=== PATIENT | female | born 1950 | race Caucasian/White ===

== ENCOUNTER 2016-07-25 13:36 | Outpatient (CLI) | payer BC | END 2016-07-25 13:37 | disposition home or self-care (01) | DX: N30.00 Acute cystitis without hematuria (principal) ==

== ENCOUNTER 2016-10-17 11:45 | Outpatient (CLI) | payer BC ==
--- NOTE | 2016-10-18 13:36 | Mammography Report ---
DIGITAL BILATERAL SCREENING MAMMOGRAM: 10/17/2016 CLINICAL HISTORY: A 66-year-old female in for routine screening mammogram. Family history indicates no breast cancer. Patient has had no prior breast surgeries. COMPARISON: None. TECHNIQUE: Craniocaudad and oblique lateral views of each breast were obtained with Hologic full-fie ld digital mammography. FINDINGS: Breast are almost entirely composed of fat. No significant clusters of calcifications are seen. No significant masses are noted. IMPRESSION: BREASTS APPEAR RADIOGRAPHICALLY BENIGN. BI-RADS 1. Negative. RECOMMENDATION: Annual bilateral screening mammography. STANDARD QUALIFYING STATEMENTS 1. This examination was reviewed with the aid of Computer-Aided Detection (CAD). 2. A negative or benign imaging report should not delay biopsy if clinically suspicious findings are present. Consider surgical consultation if warranted. More than 5% of cancers are not identified by i maging. 3. Dense breasts may obscure an underlying neoplasm. JOB #: [id number] EXT JOB #:[id number]
== END 2016-10-17 11:46 | disposition home or self-care (01) ==
LOC: DI.S 11:45
PROVIDERS: ATTEND Registered Nurse
DX: Z12.31 Encounter for screening mammogram for malignant neoplasm of breast (principal)
CPT/HCPCS: 77067

== ENCOUNTER 2016-12-09 09:07 | Outpatient (CLI) | payer BC ==
--- NOTE | 2016-12-10 21:36 | Ultrasound Report ---
EXAM: ABDOMEN ULTRASOUND LIMITED, RUQ EXAM DATE: 12/09/2016 09:56 AM. CLINICAL HISTORY: HEPATITIS C; CHRONIC. COMPARISON: None. TECHNIQUE: Real-time scanning was performed with static images obtained. FINDINGS: Liver: Normal in size and echotexture. No suspicious mass seen. Incidental right liver 13 mm cyst. Ma in portal vein flow: Hepatopetal. Gallbladder: Normal. No stones, wall thickening, or sonographic Can's sign. Biliary System: CBD measures 6 mm. No intrahepatic or extrahepatic ductal dilatation. Other: None. IMPRESSION: No suspicious hepatic mass seen by ultrasound. [facility] Referring Provider Line: [phone] SITE ID: [id number]
== END 2016-12-09 09:08 | disposition home or self-care (01) ==
LOC: DI 09:07
PROVIDERS: ATTEND Internal Medicine
DX: B18.2 Chronic viral hepatitis C (principal)
CPT/HCPCS: 76705

== ENCOUNTER 2016-12-11 08:00 | Outpatient (CLI) | payer BC ==
[2016-12-11 18:52] LABS: IRON 151 ug/dL (28-170); TOTAL IRON BINDING CAPACITY 469 ug/dL (250-450); TRANSFERRIN 335 mg/dL (192-382)
[2016-12-11 19:05] LABS: FERRITIN 60.4 ng/mL (11.0-306.8)
[2016-12-11 19:21] LABS: THYROID STIMULATING HORMONE 1.01 uIU/mL (0.34-5.60)
[2016-12-12 13:01] LABS: HEPATITIS A AB TOTAL(IMMUNITY) REACTIVE (NON-REACTIVE)
[2016-12-13 12:56] LABS: ANA SCREEN NEGATIVE (NEGATIVE)
== END 2016-12-11 08:01 | disposition home or self-care (01) ==
LOC: LAB.S 08:00
PROVIDERS: ATTEND Internal Medicine
DX: B18.2 Chronic viral hepatitis C (principal)
CPT/HCPCS: 36415; 82728; 83540; 84443; 84466; 86038; 86317; 86704; 86708; 87340; 87522; 87902

== ENCOUNTER 2017-05-24 13:11 | Outpatient (CLI) | payer MEDICARE, BC ==
--- NOTE | 2017-05-24 19:52 | XRAY Report ---
COMPLETE CERVICAL SPINE: 05/24/2017 CLINICAL INDICATION: Pain. FINDINGS: AP, lateral, bilateral oblique, odontoid views of the cervical spine were obtained. There has been previous cerclage wire fixation of the posterior elements of C3 and C4, with additional osseous fusion of the C4-C5 disk space and C4-C5 posterior elements. Reversal of the normal cervical lordosis is present. Extensive degenerative changes are present, with bilateral osseous neural foraminal narrowing. There is no evidence of acute fracture. The prevertebral soft tissues are unremarkable. IMPRESSION: EXTENSIVE DEGENERATIVE AND POSTSURGICAL CHANGES. BILATERAL OSSEOUS NEURAL FORAMINAL NARROWING. NO EVIDENCE OF ACUTE FRACTURE. TD: 05/24/2017 19:49
--- NOTE | 2017-05-24 19:52 | XRAY Report ---
THREE VIEW RIGHT SHOULDER: 05/24/2017 CLINICAL INDICATION: Pain. FINDINGS: Internal and external rotational views and a scapular Y view of the right shoulder demonstrate no evidence of fracture or dislocation. The joint spaces are preserved. Surgical clips are noted in the right supraclavicular region. IMPRESSION: NORMAL RIGHT SHOULDER. TD: 05/24/2017 19:50
== END 2017-05-24 13:12 | disposition home or self-care (01) ==
LOC: DI.S 13:11
PROVIDERS: ATTEND Registered Nurse
DX: M47.892 Other spondylosis, cervical region (principal); M25.511 Pain in right shoulder; Z98.1 Arthrodesis status
CPT/HCPCS: 72050

== ENCOUNTER 2017-06-22 08:00 | Outpatient (CLI) | payer MEDICARE, BC ==
[2017-06-22 17:42] LABS: BASOPHILS # (AUTO) 0.1 10^3/uL (0.0-0.1); BASOPHILS % (AUTO) 1.2 %; EOSINOPHILS # (AUTO) 0.1 10^3/uL (0.0-0.7); EOSINOPHILS % (AUTO) 2.2 %; HGB - HEMOGLOBIN 14.1 g/dL (12.0-16.0); LYMPHOCYTES # (AUTO) 1.1 10^3/uL (1.5-3.5); LYMPHOCYTES % (AUTO) 17.1 %; MEAN CORPUSCULAR HEMOGLOBIN 31.5 pg (27.0-31.0); MEAN CORPUSCULAR HGB CONC 33.6 g/dL (32.0-36.0); MEAN CORPUSCULAR VOLUME 93.8 fL (81.0-99.0); MEAN PLATELET VOLUME 9.3 fL (7.9-10.8); MONOCYTES # (AUTO) 0.5 10^3/uL (0.0-1.0); MONOCYTES % (AUTO) 7.9 %; NEUTROPHILS # (AUTO) 4.8 10^3/uL (1.5-6.6); NEUTROPHILS % (AUTO) 71.6 %; PLT - PLATELET COUNT 149 10^3/uL (130-450); RED BLOOD COUNT 4.49 10^6/uL (4.20-5.40); RED CELL DISTRIBUTION WIDTH 12.5 % (12.0-15.0); WHITE BLOOD COUNT 6.7 x10^3/uL (4.8-10.8)
[2017-06-22 18:04] LABS: ALBUMIN 4.3 g/dL (3.2-5.5); ALBUMIN/GLOBULIN RATIO 1.4 (1.0-2.2); BILIRUBIN,TOTAL 0.7 mg/dL (0.2-1.0); CALCIUM 9.4 mg/dL (8.5-10.3); CREATININE 0.6 mg/dL (0.4-1.0); TOTAL PROTEIN 7.4 g/dL (6.7-8.2)
== END 2017-06-22 08:01 | disposition home or self-care (01) ==
LOC: LAB.F 08:00
PROVIDERS: ATTEND Internal Medicine
DX: B18.2 Chronic viral hepatitis C (principal)
CPT/HCPCS: 36415; 80053; 85025

== ENCOUNTER 2017-06-29 14:52 | Emergency (ER) | payer MEDICARE, BC ==
[2017-06-29] MEDS ORDERED: SODIUM CHLORIDE 0.9% 1,000 ML IV ONE (15:07)
--- NOTE | 2017-06-29 15:08 | ED Physician Documentation ---
History of Present Illness - Stated complaint Stated Complaint: DEHYDRATED/CHEST CONGESTION - History obtained from History obtained from: Patient - History of Present Illness Timing: Other (She got sick about a week ago with cough and cold and runny nose. It was getting better but then got abruptly worse last night with chills and some pleuritic left-sided chest pain with coughing and a cough productive of tannish sputum. She feels dizzy and dehydrated.) Review of Systems Constitutional: reports: Fever, Chills, Fatigue Nose: reports: Rhinorrhea / runny nose. denies: Congestion Throat: denies: Sore throat Respiratory: reports: Cough. denies: Dyspnea GI: denies: Abdominal Pain PD PAST MEDICAL HISTORY - Past Medical History Past Medical History: Yes GI: Hepatitis - Present Medications Home Medications: Ambulatory Orders Medication Instructions Recorded Confirmed Doxycycline Hyclate 100 mg PO BID #14 tablet 06/29/17 - Allergies Allergies/Adverse Reactions: Allergies Allergy/AdvReac Type Severity Reaction Status Date / Time No Known Drug Allergies Allergy Verified 06/29/17 15:09 - Social History Does the pt smoke?: No Does the pt drink ETOH?: No Does the pt have substance abuse?: No - Family History Family history: reports: Non contributory PD ED PE NORMAL - Vitals Vital signs reviewed: Yes - General General: Alert and oriented X 3, No acute distress - HEENT HEENT: PERRL, EOMI, Ears normal, Moist mucous membranes, Pharynx benign - Neck Neck: Supple, no meningeal sign, No bony TTP - Cardiac Cardiac: RRR, No murmur - Respiratory Respiratory: No respiratory distress, Clear bilaterally - Abdomen Abdomen: Normal bowel sounds, Soft, Non tender - Back Back: No CVA TTP, No spinal TTP - Derm Derm: Normal color, Warm and dry - Extremities Extremities: No edema, No calf tenderness / cord - Neuro Neuro: Alert and oriented X 3, Normal speech Results - Vitals Vitals: Vital Signs - 24 hr 06/29/17 15:00 Temperature 37.0 C Heart Rate 71 Respiratory 20 Rate Blood Pressure 101/50 L O2 Saturation 97 Oxygen O2 Source Room air - Labs Labs: Laboratory Tests 06/29/17 06/29/17 06/29/17 15:25 15:25 15:25 WBC 15.2 H RBC 4.22 Hgb 13.4 Hct 39.1 MCV 92.5 MCH 31.6 H MCHC 34.2 RDW 12.3 Plt Count 129 L MPV 7.9 Neut # 13.0 H Lymph # 1.2 L Dougherty # 0.9 Eos # 0.1 Baso # 0.0 Absolute Nucleated RBC 0.00 Nucleated RBC % 0.0 Sodium 133 L Potassium 3.3 L Chloride 101 Carbon Dioxide 24 Anion Gap 8.0 BUN 23 H Creatinine 0.8 Estimated GFR (MDRD) 72 L Glucose 94 Lactic Acid 0.9 Calcium 8.9 Total Bilirubin 0.7 AST 20 ALT 13 Alkaline Phosphatase 44 Total Protein 7.2 Albumin 3.8 Globulin 3.4 Albumin/Globulin Ratio 1.1 Lipase 12 L - Rads (name of study) 2v chest Radiology: EMP read contemporaneously (LLL MARLI) PD MEDICAL DECISION MAKING - ED course ED course: 67-year-old woman presents from clinic with symptoms suggestive of pneumonia which is proven on x-ray. Antibiotic choice was difficult based on her anti- hepatitis C treatment, for example Zithromax is contraindicated. Labs are reassuring. Departure - Departure Disposition: 01 Home, Self Care Clinical Impression: Pneumonia Qualifiers: Pneumonia type: due to unspecified organism Laterality: left Lung location: lower lobe of lung Qualified Code(s): J18.1 - Lobar pneumonia, unspecified organism Condition: Good Record reviewed to determine appropriate education?: Yes Instructions: Pneumonia Dc Prescriptions: Doxycycline Hyclate 100 mg PO BID #14 tablet Comments: Return if worsening or new symptoms develop. Follow-up with your doctor next week, I suspect they will want to get a repeat chest x-ray in a few weeks to make sure the pneumonia has cleared up. Drink plenty of fluids.
[2017-06-29 15:36] LABS: BASOPHILS % (AUTO) 0.3 %; EOSINOPHILS # (AUTO) 0.1 10^3/uL (0.0-0.7); EOSINOPHILS % (AUTO) 0.6 %; HGB - HEMOGLOBIN 13.4 g/dL (12.0-16.0); LYMPHOCYTES # (AUTO) 1.2 10^3/uL (1.5-3.5); LYMPHOCYTES % (AUTO) 7.7 %; MEAN CORPUSCULAR HEMOGLOBIN 31.6 pg (27.0-31.0); MEAN CORPUSCULAR HGB CONC 34.2 g/dL (32.0-36.0); MEAN CORPUSCULAR VOLUME 92.5 fL (81.0-99.0); MEAN PLATELET VOLUME 7.9 fL (7.9-10.8); MONOCYTES # (AUTO) 0.9 10^3/uL (0.0-1.0); MONOCYTES % (AUTO) 6.2 %; NEUTROPHILS % (AUTO) 85.2 %; PLT - PLATELET COUNT 129 10^3/uL (130-450); RED BLOOD COUNT 4.22 10^6/uL (4.20-5.40); RED CELL DISTRIBUTION WIDTH 12.3 % (12.0-15.0); WHITE BLOOD COUNT 15.2 x10^3/uL (4.8-10.8)
[2017-06-29 15:49] LABS: ALBUMIN 3.8 g/dL (3.2-5.5); ALBUMIN/GLOBULIN RATIO 1.1 (1.0-2.2); BILIRUBIN,TOTAL 0.7 mg/dL (0.2-1.0); CALCIUM 8.9 mg/dL (8.5-10.3); CREATININE 0.8 mg/dL (0.4-1.0); TOTAL PROTEIN 7.2 g/dL (6.7-8.2)
--- NOTE | 2017-06-29 15:53 | XRAY Report ---
EXAM: CHEST RADIOGRAPHY EXAM DATE: 06/29/2017 03:20 PM. CLINICAL HISTORY: Dyspnea. COMPARISON: None. TECHNIQUE: 2 views. FINDINGS: Lungs/Pleura: The lungs are well-expanded. There is increased opacity within the left lower lobe. The re may be small associated pleural effusion. There is no residual pneumothorax. Mediastinum: Heart and mediastinal contours are unremarkable. Other: None. IMPRESSION: 1. Lungs are well expanded. Normal heart size. 2. There is increased opacity within the left lower lobe. This is suspicious for pneumonia. 3. There is no evidence of pneumothorax. [facility] Referring Provider Line: [phone] SITE ID: [id number]
[2017-06-29] MEDS ORDERED: DOXYCYCLINE 100 MG TABLET PO STA (16:05)
[2017-06-29] MEDS ORDERED: cefTRIAXone 1 GM in SODIUM CHLORIDE 0.9% MINIBAG 100 ML IV STA (16:05)
[2017-06-29 16:48] VITALS: BP 98/68
== END 2017-06-29 16:57 | disposition home or self-care (01) ==
LOC: ED 14:52
DX: J18.1 Lobar pneumonia, unspecified organism (principal); B19.20 Unspecified viral hepatitis C without hepatic coma
CPT/HCPCS: 36415; 71046; 80053; 83605; 83690; 85025; 87040; 96365; 99283; 99284; A9270

== ENCOUNTER 2017-07-06 09:49 | Outpatient (CLI) | payer MEDICARE, BC ==
[2017-07-06 17:37] LABS: BASOPHILS # (AUTO) 0.1 10^3/uL (0.0-0.1); BASOPHILS % (AUTO) 1.2 %; EOSINOPHILS # (AUTO) 0.2 10^3/uL (0.0-0.7); EOSINOPHILS % (AUTO) 2.9 %; HGB - HEMOGLOBIN 13.7 g/dL (12.0-16.0); LYMPHOCYTES # (AUTO) 1.6 10^3/uL (1.5-3.5); LYMPHOCYTES % (AUTO) 21.6 %; MEAN CORPUSCULAR HGB CONC 33.3 g/dL (32.0-36.0); MEAN PLATELET VOLUME 7.9 fL (7.9-10.8); MONOCYTES # (AUTO) 0.5 10^3/uL (0.0-1.0); MONOCYTES % (AUTO) 7.1 %; NEUTROPHILS # (AUTO) 4.9 10^3/uL (1.5-6.6); NEUTROPHILS % (AUTO) 67.2 %; PLT - PLATELET COUNT 217 10^3/uL (130-450); RED CELL DISTRIBUTION WIDTH 12.1 % (12.0-15.0); WHITE BLOOD COUNT 7.3 x10^3/uL (4.8-10.8)
[2017-07-06 18:21] LABS: ALBUMIN 3.9 g/dL (3.2-5.5); BILIRUBIN,TOTAL 0.6 mg/dL (0.2-1.0); CALCIUM 9.2 mg/dL (8.5-10.3); CREATININE 0.6 mg/dL (0.4-1.0); TOTAL PROTEIN 7.7 g/dL (6.7-8.2)
== END 2017-07-06 09:50 | disposition home or self-care (01) ==
LOC: LAB.F 09:49
PROVIDERS: ATTEND Internal Medicine
DX: B18.2 Chronic viral hepatitis C (principal)
CPT/HCPCS: 36415; 80053; 85025

== ENCOUNTER 2017-07-11 10:58 | Outpatient (CLI) | payer MEDICARE, BC ==
--- NOTE | 2017-07-11 10:47 | XRAY Report ---
TWO VIEW CHEST: 07/11/2017 CLINICAL INDICATION: Followup pneumonia. COMPARISON: 06/29/2017 FINDINGS: Frontal and lateral views of the chest are compared to previous film of 06/29/2017. The cardiac silhouette is within normal limits. Left basilar infiltrate and effusion have resolved. The lungs are now clear. No new consolidation, effusion, or pneumothorax is present. IMPRESSION: NORMAL CHEST. RESOLUTION OF LEFT BASILAR INFILTRATE. TD: 07/11/2017 10:45
== END 2017-07-11 10:59 | disposition home or self-care (01) ==
LOC: DI 10:58
PROVIDERS: ATTEND Registered Nurse
DX: J18.9 Pneumonia, unspecified organism (principal)
CPT/HCPCS: 71046

== ENCOUNTER 2017-07-27 11:17 | Outpatient (CLI) | payer MEDICARE, BC ==
[2017-07-31 11:11] LABS: HCV RNA QNT <1.18 NOT DETECTED Log IU/mL (NOT DETECTED); HCV RNA QUANT RT PCR <15 NOT DETECTED IU/mL (NOT DETECTED)
== END 2017-07-27 11:18 | disposition home or self-care (01) ==
LOC: LAB.F 11:17
PROVIDERS: ATTEND Internal Medicine
DX: B18.2 Chronic viral hepatitis C (principal)
CPT/HCPCS: 36415; 87522

== ENCOUNTER 2017-07-31 10:23 | Outpatient (CLI) | payer MEDICARE, OTHER ==
--- NOTE | 2017-07-31 13:05 | XRAY Report ---
TWO VIEW CHEST: 07/31/2017 CLINICAL INDICATION: Followup pneumonia. COMPARISON: 07/11/2017, 06/29/2017. FINDINGS: Frontal and lateral views of the chest demonstrate a normal cardiac silhouette. The lungs are clear. No effusion or pneumothorax is present. IMPRESSION: NORMAL CHEST. TD: 07/31/2017 13:03
== END 2017-07-31 10:24 | disposition home or self-care (01) ==
LOC: DI.S 10:23
PROVIDERS: ATTEND Registered Nurse
DX: J18.9 Pneumonia, unspecified organism (principal)
CPT/HCPCS: 71046

== ENCOUNTER 2017-10-26 14:41 | Outpatient (CLI) | payer MEDICARE, OTHER ==
[2017-10-26 17:26] LABS: BASOPHILS % (AUTO) 1.1 %; EOSINOPHILS # (AUTO) 0.2 10^3/uL (0.0-0.7); EOSINOPHILS % (AUTO) 3.6 %; HGB - HEMOGLOBIN 13.3 g/dL (12.0-16.0); LYMPHOCYTES # (AUTO) 1.4 10^3/uL (1.5-3.5); MEAN CORPUSCULAR HGB CONC 33.3 g/dL (32.0-36.0); MEAN CORPUSCULAR VOLUME 96.1 fL (81.0-99.0); MEAN PLATELET VOLUME 8.8 fL (7.9-10.8); MONOCYTES # (AUTO) 0.4 10^3/uL (0.0-1.0); MONOCYTES % (AUTO) 9.3 %; NEUTROPHILS # (AUTO) 2.4 10^3/uL (1.5-6.6); PLT - PLATELET COUNT 145 10^3/uL (130-450); RED BLOOD COUNT 4.16 10^6/uL (4.20-5.40); RED CELL DISTRIBUTION WIDTH 13.1 % (12.0-15.0); WHITE BLOOD COUNT 4.4 x10^3/uL (4.8-10.8)
[2017-10-26 17:39] LABS: ALBUMIN 4.3 g/dL (3.2-5.5); ALBUMIN/GLOBULIN RATIO 1.5 (1.0-2.2); BILIRUBIN,TOTAL 0.5 mg/dL (0.2-1.0); CALCIUM 9.5 mg/dL (8.5-10.3); CREATININE 0.7 mg/dL (0.4-1.0); TOTAL PROTEIN 7.2 g/dL (6.7-8.2)
[2017-10-29 19:01] LABS: HCV RNA QNT <1.18 NOT DETECTED Log IU/mL (NOT DETECTED); HCV RNA QUANT RT PCR <15 NOT DETECTED IU/mL (NOT DETECTED)
== END 2017-10-26 14:42 | disposition home or self-care (01) ==
LOC: LAB.F 14:41
PROVIDERS: ATTEND Internal Medicine
DX: B18.2 Chronic viral hepatitis C (principal)
CPT/HCPCS: 36415; 80053; 85025; 87522

== ENCOUNTER 2020-05-03 14:22 | Outpatient (CLI) | payer MEDICARE, OTHER ==
--- NOTE | 2020-05-04 08:27 | Mammography Report ---
BILATERAL DIGITAL SCREENING MAMMOGRAM 3D/2D: 05/03/2020 CLINICAL: Routine screening. Comparison is made to exam dated: 10/17/2016 mammogram - [facility]. There are sca ttered fibroglandular elements in both breasts. No significant masses, calcifications, or other findings are seen in either breast. There has been no significant interval change. IMPRESSION: NEGATIVE There is no mammographic evidence of malignancy. A 1 year screening mammogram is recommended. This exam was interpreted at Station ID: [id number]. NOTE: For mammograms, a report in lay terms will be sent to the patient. Approximately 15% of breast malignancies will not be visualized mammographically. In the management of a palpable breast mass, a negative mammogram must not discourage biopsy of a clinically suspicious lesion. Electronically Signed By: Mata wilde/suzy:05/03/2020 15:22:20 ACR BI-RADS Category 1: Negative 3341F PARENCHYMAL PATTERN: (A) - The breast(s) demonstrate(s) scattered fibroglandular densities. BI-RADS CATEGORY: (1) - 1 RECOMMENDATION: (ANNUAL) - Recommend routine annual screening mammography. [id number] 1 year screening LATERALITY: (B)
== END 2020-05-03 14:23 | disposition home or self-care (01) ==
LOC: DI 14:22
PROVIDERS: ATTEND Registered Nurse
DX: Z12.31 Encounter for screening mammogram for malignant neoplasm of breast (principal)

== ENCOUNTER 2021-04-16 10:22 | Outpatient (CLI) | payer MEDICARE, OTHER ==
--- NOTE | 2021-04-16 10:37 | XRAY Report ---
PROCEDURE: Chest 2 View X-Ray INDICATIONS: CHRONIC BRONCHITIS TECHNIQUE: 2 view(s) of the chest. COMPARISON: 07/31/2017, 07/11/2017, 06/29/2017 FINDINGS: Surgical changes and devices: Right supraclavicular clips are seen. Lungs and pleura: No pleural effusions or pneumothorax. Lungs are clear. Flattening of the hemidia phragms can be seen on the lateral view. Mediastinum: Mediastinal contours are normal. Heart size is normal. Bones and chest wall: No suspicious bony abnormalities. Age-appropriate degenerative changes are see n. Soft tissues appear unremarkable. IMPRESSION: Hyperexpanded lungs are seen, without an acute cardiopulmonary abnormality seen. Postoperative and degenerative changes are seen. Reviewed by: Jose Barrios MD on 04/16/2021 9:36 AM [facility] Approved by: Jose Barrios MD on 04/16/2021 9:36 AM [facility] Station ID: [id number]
== END 2021-04-16 10:23 | disposition home or self-care (01) ==
LOC: DI.S 10:22
PROVIDERS: ATTEND Registered Nurse
DX: J42 Unspecified chronic bronchitis (principal)

== ENCOUNTER 2021-04-28 13:46 | Outpatient (CLI) | payer MEDICARE, OTHER ==
--- NOTE | 2021-04-28 20:46 | CT Report ---
PROCEDURE: Low Dose Lung Cancer Screen INDICATIONS: TOBACCO DEPENDENCE TECHNIQUE: Noncontrast low-dose images were acquired from the pulmonary apices to the posterior costophrenic ang les. Multiplanar MIP reformats were then acquired. For radiation dose reduction, the following was used: automated exposure control, adjustment of mA and/or kV according to patient size. COMPARISON: Chest radiograph dated 04/16/2021 FINDINGS: Image quality: Excellent. Lungs and pleura: A 4 mm calcified granuloma noted in the anterior aspect of the right middle lobe ( image 216/series 4). There is a 3 mm left upper lobe pulmonary nodule (image 118/series 4). No suspic ious pulmonary lesions. No septal thickening or nodularity. No acute airspace disease. Minimal bibasi lar atelectasis. No pleural effusion or pneumothorax. Mediastinum: Heart size is normal. No pericardial effusion. Coronary atherosclerosis. No mediastina l adenopathy by size criteria. Thoracic aorta and central pulmonary arteries are normal in size. Tho racic aortic atherosclerosis. Esophagus is normal in caliber. No hiatal hernia. Bones and chest wall: No suspicious bony lesions. No acute vertebral body compression fractures. N o axillary or supraclavicular adenopathy by size criteria. The thyroid is normal in size and there a re no incidental findings. Abdomen: There is a 1.1 cm hepatic hypodensity involving the posterior margin of the right hepatic l obe. This is incompletely characterized but likely represents a cyst or hemangioma. Remainder of the visualized upper abdomen solid organs and bowel loops appear normal in the absence of contrast. IMPRESSION: 1. A 3 mm left upper lobe pulmonary nodule. 2. Benign 4 mm calcified pulmonary granuloma in the right middle lobe. 3. Atherosclerotic vascular disease. 4. There is a 1.1 cm hepatic hypodensity in the posterior margin of the right hepatic lobe. This is i ncompletely characterized but likely represents a cyst or hemangioma. LUNG RADS 2: Recommend continued annual screening low dose chest CT CLINICAL RECOMMENDATION STATEMENTS: In patients <35 years with an ITN detected on CT, MRI, or extrathyroidal ultrasound, the Committee re commends further evaluation with dedicated thyroid ultrasound if the nodule is "e1 cm and has no susp icious imaging features, and if the patient has normal life expectancy. In patients "e35 years with an ITN detected on CT, MRI, or extrathyroidal ultrasound, the Committee r ecommends further evaluation with dedicated thyroid ultrasound if the nodule is "e1.5 cm and has no s uspicious imaging features, and if the patient has normal life expectancy. (ACR, 2014) Reviewed by: Elijah Anthony MD on 04/28/2021 8:44 PM PST Approved by: Elijah Anthony MD on 04/28/2021 8:44 PM PST Station ID: [id number]
== END 2021-04-28 13:47 | disposition home or self-care (01) ==
LOC: DI 13:46
PROVIDERS: ATTEND Registered Nurse
DX: Z12.2 Encounter for screening for malignant neoplasm of respiratory organs (principal); F17.210 Nicotine dependence, cigarettes, uncomplicated; R91.1 Solitary pulmonary nodule; J84.10 Pulmonary fibrosis, unspecified; I70.0 Atherosclerosis of aorta; R93.2 Abnormal findings on diagnostic imaging of liver and biliary tract

== ENCOUNTER 2022-05-19 11:39 | Outpatient (CLI) | payer MEDICARE, OTHER ==
--- NOTE | 2022-05-19 12:39 | CT Report ---
PROCEDURE: Low Dose Lung Cancer Screen INDICATIONS: TOBACCO DEPENDENCE TECHNIQUE: Noncontrast low-dose axial images were acquired from the pulmonary apices to the posterior costophren ic angles. Multiplanar MIP reformats were then reconstructed. For radiation dose reduction, the follo wing was used: automated exposure control, adjustment of mA and/or kV according to patient size. COMPARISON: None. FINDINGS: Image quality: Excellent. Lungs and pleura: Calcified granuloma in the right middle lobe. No suspicious pulmonary nodules. Mod erate centrilobular emphysema. 3 mm endobronchial nodule within a subsegmental left upper lobe bronch us (4/145). Mediastinum: Heart size is normal. No pericardial effusion. No mediastinal adenopathy by size crit eria. Thoracic aorta and central pulmonary arteries are normal in size. Esophagus is normal in frank jagruti. No hiatal hernia. Moderate coronary artery calcifications for age. Bones and chest wall: No suspicious bony lesions. No vertebral body compression fractures. No axil pawan or supraclavicular adenopathy by size criteria. The thyroid is normal in size and there are no incidental findings. Abdomen: Visualized upper abdomen solid organs and bowel loops appear normal in the absence of contr ast. Fluid attenuating liver cyst in segment 7, benign. IMPRESSION: Lung RADS 2, benign. Continue 12 month follow-up is recommended if applicable. Reviewed by: Steve Cortes on 05/19/2022 12:38 PM PST Approved by: Steve Cortes on 05/19/2022 12:38 PM PST Station ID: [id number]
== END 2022-05-19 11:40 | disposition home or self-care (01) ==
LOC: DI 11:39
PROVIDERS: ATTEND Registered Nurse
DX: Z12.2 Encounter for screening for malignant neoplasm of respiratory organs (principal); F17.210 Nicotine dependence, cigarettes, uncomplicated

== ENCOUNTER 2022-05-24 08:38 | Outpatient (CLI) | payer MEDICARE, OTHER ==
--- NOTE | 2022-05-25 09:09 | Mammography Report ---
BILATERAL DIGITAL SCREENING MAMMOGRAM 3D/2D: 05/24/2022 CLINICAL: Routine screening. Comparison is made to exam dated: 05/03/2020 mammogram - [facility]. There are scattered areas of fibroglandular density in both breasts (category b / 25%-50% glandular t issue). No significant masses, calcifications, or other findings are seen in either breast. There has been no significant interval change. IMPRESSION: NEGATIVE There is no mammographic evidence of malignancy. A 1 year screening mammogram is recommended. Based on the Tyrer Cuzick model (a risk assessment model) the patients lifetime risk is 3.8% and her 10 year risk is 2.4%. According to the ACR, ACS, and NCCN guidelines, an annual breast MRI exam cielo g with mammogram is recommended if the patients lifetime risk is 20% or greater. This exam was interpreted at Station ID: [id number]. NOTE: For mammograms, a report in lay terms will be sent to the patient. Approximately 15% of breast malignancies will not be visualized mammographically. In the management of a palpable breast mass, a negative mammogram must not discourage biopsy of a clinically suspicious lesion. Electronically Signed By: Dave cooper/suzy:05/24/2022 11:07:14 letter sent: No_Letter ACR BI-RADS Category 1: Negative 3341F PARENCHYMAL PATTERN: (A) - The breast(s) demonstrate(s) scattered fibroglandular densities. BI-RADS CATEGORY: (1) - 1 RECOMMENDATION: (ANNUAL) - Recommend routine annual screening mammography. [id number] 1 year screening LATERALITY: (B)
== END 2022-05-24 08:39 | disposition home or self-care (01) ==
LOC: DI.S 08:38
PROVIDERS: ATTEND Registered Nurse
DX: Z12.31 Encounter for screening mammogram for malignant neoplasm of breast (principal)

== ENCOUNTER 2022-06-29 12:56 | Outpatient (CLI) | payer MEDICARE, OTHER ==
--- NOTE | 2022-06-29 16:47 | DEXA Report ---
PROCEDURE: Dexa Spine and/or Hip INDICATIONS: POST MENOPAUSAL TECHNIQUE: Dual energy x-ray absorptiometry (DXA) was performed on a [employer]. Regions measur ed are the AP Spine, femoral neck, and if needed forearm. COMPARISON: None. FINDINGS: Lumbar Spine: Bone Mineral Density 0.892 g/cm/cm,T score -2.4, osteopenia Left Femoral Neck: Bone Mineral Density 0.755 g/cm/cm, T score -2.0, osteopenia Left Hip: Bone Mineral Density 0.738 g/cm/cm,T score -2.1, osteopenia (T score greater or equal to -1.0: NORMAL) (T score from -1.1 to -2.4: OSTEOPENIA) (T score less than or equal to -2.5 to: OSTEOPOROSIS) Impression: Osteopenia Patients with diagnosis of osteoporosis or osteopenia should have regular bone mineral density assess ment. For those eligible for Medicare, routine testing is allowed once every 2 years. Testing frequ ency can be increased for patients who have rapidly progressing disease or for those who are receivin g medical therapy to restore bone mass. Reviewed by: Mata Corona MD on 06/29/2022 4:46 PM PDT Approved by: Mata Corona MD on 06/29/2022 4:46 PM PDT Station ID: [id number]
== END 2022-06-29 12:57 | disposition home or self-care (01) ==
LOC: DI 12:56
PROVIDERS: ATTEND Registered Nurse
DX: Z78.0 Asymptomatic menopausal state (principal); M85.89 Other specified disorders of bone density and structure, multiple sites

== ENCOUNTER 2023-01-29 11:41 | Outpatient (CLI) | payer MEDICARE, OTHER ==
[2023-01-29] MEDS ORDERED: BARIUM SULFATE 450 ML BOTTLE PO ONE (14:00)
[2023-01-29] MEDS ORDERED: iohexoL-300 100 ML VIAL IVP ONE (14:00)
--- NOTE | 2023-01-29 14:52 | CT Report ---
PROCEDURE: ABDOMEN/PELVIS W INDICATIONS: UNINTENTIONAL WEIGHT LOSS CONTRAST: 100ml omni TECHNIQUE: After the administration of oral and intravenous contrast, 5 mm thick sections acquired from the diap hragms to the symphysis. 5 mm thick coronal and sagittal reformats were acquired. For radiation dos e reduction, the following was used: automated exposure control, adjustment of mA and/or kV accordin g to patient size. COMPARISON: None FINDINGS: Image quality: Excellent. Lung bases and heart: Unremarkable. Liver: Subcentimeter hypodensities within the liver are favored to represent simple cysts. No solid m asses. Gallbladder and biliary tree: No radiopaque stones or wall thickening. No biliary dilation. Spleen: No splenomegaly. Pancreas: No pancreatic ductal dilation. Adrenals: No adrenal nodule. Kidneys and ureters: No hydronephrosis. No renal cystic lesion which requires follow up. No solid mas s. Bowel and peritoneum: No bowel distension. No pathologic free fluid. Lymph nodes: No central or retroperitoneal adenopathy. Vessels: No infrarenal aortic aneurysm. Atherosclerotic vascular calcifications. PELVIS Reproductive organs: Unremarkable. Bladder: No abnormal wall thickening, accounting for underdistension. Pelvic lymph nodes: No pelvic adenopathy by size criteria. Bones: No aggressive osseous abnormality. Degenerative changes of the lumbar spine. Decreased osseous mineralization. Other: No significant ventral or inguinal hernia. IMPRESSION: 1.No cause for patient's symptoms is identified. 2.No acute abnormalities within the abdomen or pelvis. Reviewed by: Martínez Stratton MD on 01/29/2023 2:51 PM PDT Approved by: Martínez Stratton MD on 01/29/2023 2:51 PM PDT Station ID: [id number]
== END 2023-01-29 11:42 | disposition home or self-care (01) ==
LOC: DI 11:41
PROVIDERS: ATTEND Registered Nurse
DX: R63.4 Abnormal weight loss (principal)
CPT/HCPCS: 74177; A9270; Q9967

== ENCOUNTER 2023-12-14 13:57 | Outpatient (CLI) | payer MEDICARE, OTHER ==
--- NOTE | 2023-12-14 14:55 | XRAY Report ---
PROCEDURE: Knee 3V LT INDICATIONS: PAIN OF LEFT KNEE REGION TECHNIQUE: 3 views of the knee(s) were acquired. COMPARISON: None. FINDINGS: No acute fracture or dislocation. Mild tricompartmental osteoarthritis and chondrocalcinosis. No sign ificant joint effusion. IMPRESSION: Mild tricompartmental osteoarthritis and chondrocalcinosis. Reviewed by: Jr Landers MD on 12/14/2023 2:54 PM PDT Approved by: Jr Landers MD on 12/14/2023 2:54 PM PDT Station ID: [id number]
== END 2023-12-14 13:58 | disposition home or self-care (01) ==
LOC: DI.S 13:57
DX: M17.12 Unilateral primary osteoarthritis, left knee (principal); M11.262 Other chondrocalcinosis, left knee